=== PATIENT | female | born 2000 | race Two or more races ===

== ENCOUNTER 2025-04-29 13:45 | Emergency (ER) | payer BC ==
[~2025-04-29] VITALS: Ht 167.6 cm; Wt 52.2 kg
[2025-04-29] MEDS ORDERED: KETOROLAC TROMETHAMINE INJ 30 MG/ML VIAL ONE (14:34)
[2025-04-29] MEDS: KETOROLAC TROMETHAMINE INJ 30 MG/ML VIAL IM ONE (14:37)
[2025-04-29 14:40] LABS: APPEARANCE,URINE SLIGHTLY CLOUDY (CLEAR); BILIRUBIN,URINE NEGATIVE (NEGATIVE); BLOOD, URINE NEGATIVE Ery/uL (NEGATIVE); COLOR,URINE YELLOW (YELLOW); KETONES,URINE NEGATIVE (NEGATIVE); LEUKOCYTE ESTERASE ,URINE NEGATIVE (NEGATIVE); NITRITE, URINE NEGATIVE (NEGATIVE); PROTEIN,URINE NEGATIVE (NEGATIVE); UGLUCOSE NEGATIVE (NEGATIVE); UROBILINOGEN,URINE 0.2 EU/dL (0.2)
[2025-04-29 14:45] LABS: PREGNANCY TEST URINE QUAL NEGATIVE (NEGATIVE)
[2025-04-29 14:49] LABS: ADD URINE CULTURE NO; BACTERIA,URINE Rare /HPF (None Seen); RBC,URINE 0-2 /HPF (0-2); SQUAMOUS EPITHELIAL CELL,UR 0-2 /HPF (None Seen); WBC,URINE 0-2 /HPF (0-3)
[2025-04-29] MEDS ORDERED: IBUP-1953 PO (15:29)
[2025-04-29] MEDS ORDERED: GABA-532 PO (15:29)
[2025-04-29 15:36] VITALS: BP 128/80; TEMP 98.3; O2SAT 99
== END 2025-04-29 15:36 | disposition home or self-care (01) ==
LOC: ER 13:55
DX: M54.50 Low back pain, unspecified (principal)
CPT/HCPCS: 99285; 72131; 96372; 84703; 81001; J1885